=== PATIENT | male | born 1950 | race African-American/Black ===

== ENCOUNTER 2018-04-23 22:13 | Inpatient (IN) | payer MEDICARE, OTHER ==
[~2018-04-23] VITALS: Ht 172.7 cm; Wt 67.7 kg
[2018-04-24 00:10] LABS: BASOPHILS % 0.9 % (0.0-2.0); CHLORIDE 106 mEq/L (98-107); EOSINOPHILS % 1.6 % (0.0-5.0); HEMATOCRIT. 40.6 % (42.0-52.0); HEMOGLOBIN. 13.5 g/dL (14.0-18.0); MEAN CORPUSCULAR VOLUME 90.5 fL (80.0-94.0); MEAN PLATELET VOLUME 7.6 fl (7.4-10.4); MONOCYTES % 14.2 % (2.0-8.0); NEUTROPHILS % 45.3 % (40.0-76.0); PLATELET 164 x1000/uL (130-400); RED BLOOD CELL COUNT 4.49 mill/uL (4.7-6.1); RED CELL DISTRIBUTION WIDTH 14.8 % (11.6-14.6)
[2018-04-24] MEDS ORDERED: ASPIRIN 81MG TABLET PO ONE (02:00)
[2018-04-24] MEDS ORDERED: ACETAMINOPHEN 325MG TABLET PO PRN (07:30)
[2018-04-24] MEDS ORDERED: HYDROMORPHONE HCL/PF 2MG/ML CPJ IV PRN (07:30)
[2018-04-24] MEDS ORDERED: ONDANSETRON HCL 4MG/2ML INJ IV PRN (07:30)
[2018-04-24] MEDS ORDERED: IPRATROPIUM/ALBUTEROL 0.5-3(2.5)MG/3ML NEB INH PRN (07:30)
[2018-04-24] MEDS ORDERED: HYDRALAZINE 20MG/ML VIAL IV PRN (07:30)
[2018-04-24] MEDS ORDERED: HYDROCODONE/ACETAMINOPHEN 10/325MG TABLET PO PRN (07:30)
[2018-04-24] MEDS ORDERED: DIPHENHYDRAMINE 50MG/ML VIAL IV PRN (07:30)
[2018-04-24] MEDS ORDERED: GUAIFENESIN 200MG/10ML SUGAR FREE UDC PO PRN (07:30)
[2018-04-24] MEDS ORDERED: CLONIDINE 0.1MG TABLET PO PRN (07:30)
[2018-04-24] MEDS ORDERED: DOCUSATE SODIUM 100MG CAPSULE PO PRN (07:30)
[2018-04-24] MEDS ORDERED: MAGNESIUM/ALUMINUM HYDROXIDE/SIMETHICONE 30ML UDC PO PRN (07:30)
[2018-04-24] MEDS ORDERED: LORAZEPAM 2MG/ML CPJ IV PRN (07:30)
[2018-04-24] MEDS ORDERED: NA PHOS,M-B/NA PHOS,DI-BA ENEMA 118ML PR PRN (07:30)
[2018-04-24] MEDS ORDERED: ASPIRIN 81MG EC TABLET PO SCH (09:00)
[2018-04-24] MEDS ORDERED: REGADENOSON 0.4 MG/5 ML IV ONE (11:00)
[2018-04-24 15:51] LABS: CREATINE KINASE 104 IU/L (39-308)
[2018-04-24 15:52] LABS: CREATINE KINASE MB FRACTION < 1.0 ng/mL (0.5-3.6)
[2018-04-24 20:00] VITALS: BP 143/60
[2018-04-24] MEDS ORDERED: ENOXAPARIN 40MG/0.4ML SYR SUBCUT SCH (20:00)
[2018-04-24 20:35] VITALS: BP 143/60
[2018-04-24] MEDS ORDERED: SODIUM CHLORIDE 0.9% INJ 3ML FLUSH IVF SCH (22:00)
[2018-04-24 23:54] VITALS: BP 138/68
[2018-04-25 00:42] LABS: CREATINE KINASE 95 IU/L (39-308)
[2018-04-25 00:43] LABS: CREATINE KINASE MB FRACTION < 1.0 ng/mL (0.5-3.6)
[2018-04-25 04:11] VITALS: BP 148/58
[2018-04-25 06:51] VITALS: BP 139/81
[2018-04-25 06:56] LABS: BASOPHILS % 0.7 % (0.0-2.0); HEMATOCRIT. 43.3 % (42.0-52.0); HEMOGLOBIN. 14.5 g/dL (14.0-18.0); LYMPHOCYTES % 43.9 % (20.0-50.0); MEAN CORPUSCULAR HEMOGLOBIN 30.1 pg (28.0-32.0); MEAN CORPUSCULAR VOLUME 90.2 fL (80.0-94.0); MEAN PLATELET VOLUME 7.9 fl (7.4-10.4); MONOCYTES % 10.9 % (2.0-8.0); NEUTROPHILS % 42.5 % (40.0-76.0); PLATELET 179 x1000/uL (130-400); RED CELL DISTRIBUTION WIDTH 14.5 % (11.6-14.6)
[2018-04-25 07:16] LABS: CHLORIDE 106 mEq/L (98-107)
[2018-04-25 07:28] LABS: LDL CHOLESTEROL 84 mg/dL (5-100)
[2018-04-25 07:29] LABS: HDL CHOLESTEROL 72 mg/dL (40-59); T4 FREE 1.11 ng/dL (0.76-1.46)
[2018-04-25 08:00] VITALS: BP 145/64
[2018-04-25] MEDS ORDERED: ASPIRIN 81MG TABLET PO SCH (09:00)
[2018-04-25 09:57] VITALS: BP 145/64
== END 2018-04-25 11:05 | disposition home or self-care (01) | DRG 203 ==
LOC: ER 22:13 → 6WST 04-24 02:11 → EDBEDREQDT 04-24 02:14 → EDBEDREQTM 04-24 02:14 → EDBEDREQ 04-24 02:14 → ENRESERV 04-24 18:14
PROVIDERS: ADMIT Internal Medicine; ATTEND Internal Medicine
DX: R07.9 Chest pain, unspecified (principal); E78.5 Hyperlipidemia, unspecified; F12.90 Cannabis use, unspecified, uncomplicated; F17.200 Nicotine dependence, unspecified, uncomplicated; I10 Essential (primary) hypertension
CPT/HCPCS: 36415; 71045; 78452; 80061; 82550; 82553; 83036; 83880; 84439; 84443; 84484; 85379; 93005; 93017; 93306; 93970; 99285; A9500; J2785

== ENCOUNTER 2018-08-02 16:22 | Inpatient (IN) | payer MEDICARE ==
[~2018-08-02] VITALS: Ht 172.7 cm; Wt 80.7 kg
[2018-08-02] MEDS ORDERED: MORPHINE SULFATE 4 MG/ML CPJ (NOT FOR IM USE) IV STA (21:26)
[2018-08-02] MEDS ORDERED: ONDANSETRON HCL 4MG/2ML INJ IV STA (21:26)
[2018-08-02] MEDS ORDERED: ASPIRIN 81MG TABLET PO ONE (21:30)
[2018-08-02] MEDS ORDERED: NITROGLYCERIN OINT 1GM/INCH UDPKT TD ONE (21:30)
[2018-08-02 21:32] LABS: BASOPHILS % 1.1 % (0.0-2.0); EOSINOPHILS % 1.9 % (0.0-5.0); HEMATOCRIT. 46.2 % (42.0-52.0); HEMOGLOBIN. 15.5 g/dL (14.0-18.0); LYMPHOCYTES % 46.3 % (20.0-50.0); MEAN CORPUSCULAR HEMOGLOBIN 29.8 pg (28.0-32.0); MEAN CORPUSCULAR VOLUME 88.6 fL (80.0-94.0); MEAN PLATELET VOLUME 7.4 fl (7.4-10.4); MONOCYTES % 9.9 % (2.0-8.0); NEUTROPHILS % 40.8 % (40.0-76.0); PLATELET 174 x1000/uL (130-400); RED BLOOD CELL COUNT 5.22 mill/uL (4.7-6.1); RED CELL DISTRIBUTION WIDTH 14.3 % (11.6-14.6)
[2018-08-02 21:37] LABS: CHLORIDE 105 mEq/L (98-107)
[2018-08-02 21:39] LABS: PARTIAL THROMBOPLASTIN TIME 28.1 sec (23.4-31.0); PROTHROMBIN TIME 10.5 sec (9.6-11.0)
[2018-08-03 03:00] VITALS: BP 135/64
[2018-08-03] MEDS ORDERED: VERA300C6 PO (03:23)
[2018-08-03] MEDS ORDERED: ASPI-1159 PO (03:23)
[2018-08-03] MEDS ORDERED: MULT-1146 PO (03:23)
[2018-08-03] MEDS: NITROGLYCERIN OINT 1GM/INCH UDPKT TD SCH ×2 (07:16→22:00)
[2018-08-03 08:00] VITALS: BP 135/62
[2018-08-03] MEDS: ASPIRIN 81MG TABLET PO SCH (09:15)
[2018-08-03 10:43] LABS: BASOPHILS % 0.7 % (0.0-2.0); EOSINOPHILS % 1.9 % (0.0-5.0); HEMATOCRIT. 41.1 % (42.0-52.0); HEMOGLOBIN. 13.6 g/dL (14.0-18.0); LYMPHOCYTES % 36.8 % (20.0-50.0); MEAN CORPUSCULAR HEMOGLOBIN 29.5 pg (28.0-32.0); MEAN CORPUSCULAR VOLUME 89.3 fL (80.0-94.0); MEAN PLATELET VOLUME 7.9 fl (7.4-10.4); MONOCYTES % 8.2 % (2.0-8.0); NEUTROPHILS % 52.4 % (40.0-76.0); PLATELET 160 x1000/uL (130-400); RED CELL DISTRIBUTION WIDTH 13.7 % (11.6-14.6)
[2018-08-03 10:55] LABS: CHLORIDE 106 mEq/L (98-107)
[2018-08-03 11:09] LABS: CREATINE KINASE MB FRACTION 74.5 ng/mL (0.5-3.6)
[2018-08-03] MEDS ORDERED: MORPHINE SULFATE 4 MG/ML CPJ (NOT FOR IM USE) IV PRN ×2 (11:30→13:45)
[2018-08-03 11:35] VITALS: BP 131/61
[2018-08-03] MEDS: METOPROLOL TARTRATE 50MG TABLET PO SCH ×2 (12:00→21:16)
[2018-08-03] MEDS ORDERED: MIDAZOLAM HCL 2 MG/2 ML VIAL ONE (12:34)
[2018-08-03] MEDS ORDERED: FENTANYL CITRATE/PF 50MCG/ML 2ML VIAL ONE (12:35)
[2018-08-03] MEDS ORDERED: IODIXANOL 320MG/ML 100 ML BOTTLE IV ONE (12:35)
[2018-08-03] MEDS ORDERED: ASPIRIN/SOD BICARB/CITRIC ACID 324MG TAB EFF ONE (12:35)
[2018-08-03] MEDS ORDERED: LIDOCAINE HCL 1% 20ML VIAL (Pyxis) INJ ONE (12:35)
[2018-08-03] MEDS: SODIUM CHLORIDE 0.9% 1,000 ML IV SCH ×2 (12:37→21:03)
[2018-08-03] MEDS ORDERED: CLOPIDOGREL 75MG TABLET PO NR (13:30)
[2018-08-03] MEDS ORDERED: NITROGLYCERIN 50MCG/ML 10ML VIAL (CATH LAB) IV ONE (13:36)
[2018-08-03] MEDS ORDERED: HEPARIN SODIUM 1,000 UNIT/1ML VIAL IV ONE (13:36)
[2018-08-03] MEDS ORDERED: NICARDIPINE 100MCG/ML 10ML VIAL (CATH LAB) IV ONE (13:36)
[2018-08-03] MEDS ORDERED: ATROPINE SULFATE 1MG/10ML SYR IV PRN (13:45)
[2018-08-03] MEDS ORDERED: ONDANSETRON HCL 4MG/2ML INJ IV PRN (13:45)
[2018-08-03] MEDS ORDERED: ACETAMINOPHEN 325MG TABLET PO PRN (13:45)
[2018-08-03] MEDS ORDERED: SODIUM CHLORIDE 0.45% 1,000 ML IV ONE (13:45)
[2018-08-03] MEDS ORDERED: VERAPAMIL HCL 120MG TABLET PO SCH (14:00)
[2018-08-03 16:46] LABS: CREATINE KINASE MB FRACTION 47.2 ng/mL (0.5-3.6)
[2018-08-03 20:00] VITALS: BP 126/63
[2018-08-03] MEDS: AMLODIPINE 2.5MG TABLET PO SCH (21:00)
[2018-08-03] MEDS ORDERED: ATORVASTATIN CALCIUM 40MG TABLET PO SCH (21:00)
[2018-08-03 22:00] VITALS: BP 121/66
[2018-08-03 23:27] LABS: CREATINE KINASE MB FRACTION 25.6 ng/mL (0.5-3.6)
[2018-08-04] VITALS (15 sets, daily range): BP systolic 99–158; BP diastolic 40–98
[2018-08-04] MEDS: NITROGLYCERIN OINT 1GM/INCH UDPKT TD SCH ×2 (06:00→13:41)
[2018-08-04 07:04] LABS: BASOPHILS % 0.8 % (0.0-2.0); EOSINOPHILS % 2.4 % (0.0-5.0); HEMATOCRIT. 39.7 % (42.0-52.0); HEMOGLOBIN. 13.2 g/dL (14.0-18.0); LYMPHOCYTES % 42.4 % (20.0-50.0); MEAN CORPUSCULAR HEMOGLOBIN 29.7 pg (28.0-32.0); MEAN CORPUSCULAR VOLUME 89.2 fL (80.0-94.0); MEAN PLATELET VOLUME 7.7 fl (7.4-10.4); NEUTROPHILS % 42.4 % (40.0-76.0); PLATELET 167 x1000/uL (130-400); RED BLOOD CELL COUNT 4.45 mill/uL (4.7-6.1); RED CELL DISTRIBUTION WIDTH 14.1 % (11.6-14.6)
[2018-08-04 07:21] LABS: CHLORIDE 108 mEq/L (98-107)
[2018-08-04 07:37] LABS: LDL CHOLESTEROL 69 mg/dL (5-100)
[2018-08-04 07:39] LABS: HDL CHOLESTEROL 67 mg/dL (40-59)
[2018-08-04 07:41] LABS: CREATINE KINASE MB FRACTION 15.8 ng/mL (0.5-3.6)
[2018-08-04] MEDS: METOPROLOL TARTRATE 50MG TABLET PO SCH (08:10)
[2018-08-04] MEDS: ASPIRIN 81MG TABLET PO SCH (08:10)
[2018-08-04] MEDS: AMLODIPINE 2.5MG TABLET PO SCH (08:10)
[2018-08-04] MEDS ORDERED: CLOPIDOGREL 75MG TABLET PO SCH (09:00)
[2018-08-04] MEDS ORDERED: METO-539 MT (11:01)
[2018-08-04] MEDS ORDERED: AMLO5TAB88 PO (11:02)
[2018-08-04] MEDS ORDERED: CLOP75TA16 * (11:05)
[2018-08-04] MEDS ORDERED: CLOP75TA16 MT (11:06)
[2018-08-04] MEDS ORDERED: CLOP75TA16 PO (11:08)
[2018-08-04] MEDS ORDERED: ATOR40TA70 PO (11:09)
[2018-08-04 14:48] LABS: CREATINE KINASE MB FRACTION 10.3 ng/mL (0.5-3.6)
[2018-08-04] MEDS ORDERED: METOPROLOL TARTRATE 25MG TABLET PO SCH (21:00)
== END 2018-08-04 15:58 | disposition short-term general hospital (02) | DRG 282 ==
LOC: ER 16:22 → EDBEDREQ 08-03 00:57 → EDBEDREQTM 08-03 00:57 → ENRESERV 08-03 01:28 → 6WST 08-03 02:58 → 3WST 08-03 15:50
PROVIDERS: ADMIT Internal Medicine Critical Care Medicine; ATTEND Internal Medicine Critical Care Medicine
PROC: 4A023N7 Measurement of Cardiac Sampling and Pressure, Left Heart, Percutaneous Approach (ICD-10-PCS; principal; 2018-08-03)
PROC: B2111ZZ Fluoroscopy of Multiple Coronary Arteries using Low Osmolar Contrast (ICD-10-PCS; 2018-08-03)
PROC: B2151ZZ Fluoroscopy of Left Heart using Low Osmolar Contrast (ICD-10-PCS; 2018-08-03)
DX: I21.4 Non-ST elevation (NSTEMI) myocardial infarction (principal); I11.9 Hypertensive heart disease without heart failure; I25.110 Atherosclerotic heart disease of native coronary artery with unstable angina pectoris; J45.909 Unspecified asthma, uncomplicated; F17.200 Nicotine dependence, unspecified, uncomplicated; Z80.1 Family history of malignant neoplasm of trachea, bronchus and lung; Z82.49 Family history of ischemic heart disease and other diseases of the circulatory system; Z83.3 Family history of diabetes mellitus
CPT/HCPCS: 36415; 71045; 80048; 80061; 82553; 83880; 84484; 85379; 93005; 93306; 93458; 96374; 99285; C1769; C1887; C1893; J1644; J2250; J2270; J2405; J3010; J3490; J7030; Q9967